=== PATIENT | male | born 1985 | race African-American/Black ===

== ENCOUNTER 2021-02-27 00:51 | Emergency (ER) ==
[~2021-02-27] VITALS: Ht 180.3 cm; Wt 102.3 kg
== END 2021-02-27 01:02 | disposition left against medical advice (07) ==
LOC: M ED 00:51
DX: Z53.21 Procedure and treatment not carried out due to patient leaving prior to being seen by health care provider (principal)

== ENCOUNTER → 2021-04-27 | Outpatient (CLI) | payer OTHER | LOC: M CARPUL 08:13 | PROVIDERS: ATTEND Physician Assistant | DX: R06.2 Wheezing (principal) ==